=== PATIENT | male | born 1955 | race Caucasian/White ===

== ENCOUNTER 2017-03-24 11:27 | Inpatient (IN) | payer OTHER ==
--- NOTE | 2017-03-24 13:05 | RAD ---
HISTORY: Upper abdominal pain and nausea Study: Two-view chest Comparison: June 26, 2013 Findings: Trachea is midline. Heart size is upper normal with aortic uncoiling. There is hyperinflation of the lungs with stable increased interstitial markings. No infiltrate, CHF, pleural fluid or pneumothorax is seen. Mild multilevel thoracic spondylosis is appreciated. IMPRESSION: No acute cardiopulmonary disease. Reported By:
[2017-03-24] MEDS ORDERED: ZOFRAN INJ 4 MG VIAL IVP PRN (13:24)
[2017-03-24] MEDS ORDERED: PHENERGAN INJ 25 MG IVP PRN (13:31)
[2017-03-24 13:47] VITALS: BMI 31.5
[2017-03-24 13:48] LABS: BASOPHILS % (AUTO) 0.4 % (0.2-1.0); EOSINOPHILS # (AUTO) 0.2 x10^3/uL (0.0-0.2); EOSINOPHILS % (AUTO) 3.6 % (0.9-2.9); HEMATOCRIT 41.4 % (42.0-54.0); HEMOGLOBIN 14.6 g/dL (13.5-18.0); LYMPHOCYTES # (AUTO) 1.6 X10^3/uL (1.3-2.9); LYMPHOCYTES % (AUTO) 25.2 % (21.0-51.0); MEAN CORPUSCULAR HEMOGLOBIN 35.7 pg (27.0-34.0); MEAN CORPUSCULAR HGB CONC 35.3 g/dL (33.0-35.0); MEAN PLATELET VOLUME 7.6 fL (7.4-11.0); MONOCYTES # (AUTO) 0.7 x10^3/uL (0.3-0.8); MONOCYTES % (AUTO) 10.6 % (0.0-13.0); NEUTROPHILS # (AUTO) 3.8 x10^3/uL (2.2-4.8); NEUTROPHILS % (AUTO) 60.2 % (42.0-75.0); PLATELET COUNT 278 X10^3/uL (150.0-450.0); RED CELL DISTRIBUTION WIDTH 13.2 % (11.6-16.5); WHITE BLOOD COUNT 6.3 X10^3/uL (3.6-10.0)
[2017-03-24 13:59] LABS: ALANINE AMINOTRANSFERASE 18 Units/L (12-78); ALBUMIN 2.7 g/dL (3.4-5.0); ALKALINE PHOSPHATASE 45 Units/L (46-116); AMYLASE 52 Units/L (25-115); ASPARTATE AMINO TRANSFERASE 11 Units/L (15-37); BLOOD UREA NITROGEN 8 mg/dL (7-18); CALCIUM 9.3 mg/dL (8.5-10.1); CARBON DIOXIDE 29.1 mmol/L (21-32); CHLORIDE 104 mmol/L (98-107); COR CA(FOR HYPOALB) 10.3 mg/dL (8.5-10.1); COR NA(FOR HYPERGLY) 139 mmol/L (136-145); CREATININE 1.15 mg/dL (0.70-1.30); LIPASE 1337 Units/L (73-393); SODIUM 137 mmol/L (136-145); TOTAL PROTEIN 6.7 g/dL (6.4-8.2); eGFR BLACK RACES > 60 (>60); eGFR NON BLACK RACES > 60 (>60)
[2017-03-24] MEDS: PROTONIX INJ 40 MG VIAL IVP SCH ×2 (14:19→21:07)
[2017-03-24] MEDS: DILAUDID INJ IVP PRN ×2 (14:19→20:04)
[2017-03-24 20:15] LABS: BILIRUBIN,URINE NEGATIVE (NEGATIVE); BLOOD/HEMOGLOBIN,URINE 1+ (NEGATIVE); GLUCOSE, URINE NEGATIVE (NEGATIVE); KETONES,URINE NEGATIVE (NEGATIVE); LEUKOCYTE ESTERASE ,URINE NEGATIVE (NEGATIVE); NITRITES,URINE NEGATIVE (NEGATIVE); PROTEIN,URINE 2+ (NEGATIVE); UROBILINOGEN,URINE NORMAL (NORMAL)
[2017-03-24 20:21] LABS: APPEARANCE,URINE HAZY (CLEAR); BACTERIA,URINE TRACE /HPF (NEGATIVE); COLOR,URINE YELLOW (YELLOW); MUCUS,URINE MODERATE /HPF (NEGATIVE); RBC,URINE 0-2 /HPF (NEGATIVE); SQUAMOUS EPITHELIAL CELL,UR NEGATIVE /HPF (NEGATIVE)
[2017-03-25] MEDS: DILAUDID INJ IVP PRN ×5 (00:47→17:07)
[2017-03-25 06:32] LABS: ALANINE AMINOTRANSFERASE 19 Units/L (12-78); ALBUMIN 2.9 g/dL (3.4-5.0); ALKALINE PHOSPHATASE 44 Units/L (46-116); ASPARTATE AMINO TRANSFERASE 16 Units/L (15-37); BLOOD UREA NITROGEN 9 mg/dL (7-18); CALCIUM 9.3 mg/dL (8.5-10.1); CARBON DIOXIDE 29.9 mmol/L (21-32); CHLORIDE 104 mmol/L (98-107); COR CA(FOR HYPOALB) 10.2 mg/dL (8.5-10.1); COR NA(FOR HYPERGLY) 140 mmol/L (136-145); SODIUM 140 mmol/L (136-145); eGFR BLACK RACES > 60 (>60); eGFR NON BLACK RACES > 60 (>60)
[2017-03-25 06:33] LABS: BASOPHILS # (AUTO) 0.1 X10^3/uL (0.0-0.1); BASOPHILS % (AUTO) 1.5 % (0.2-1.0); EOSINOPHILS # (AUTO) 0.2 x10^3/uL (0.0-0.2); EOSINOPHILS % (AUTO) 3.4 % (0.9-2.9); HEMATOCRIT 41.1 % (42.0-54.0); HEMOGLOBIN 14.5 g/dL (13.5-18.0); LYMPHOCYTES # (AUTO) 1.8 X10^3/uL (1.3-2.9); LYMPHOCYTES % (AUTO) 24.3 % (21.0-51.0); MEAN CORPUSCULAR HEMOGLOBIN 35.6 pg (27.0-34.0); MEAN CORPUSCULAR HGB CONC 35.2 g/dL (33.0-35.0); MEAN PLATELET VOLUME 7.8 fL (7.4-11.0); MONOCYTES % (AUTO) 14.2 % (0.0-13.0); NEUTROPHILS # (AUTO) 4.1 x10^3/uL (2.2-4.8); NEUTROPHILS % (AUTO) 56.6 % (42.0-75.0); PLATELET COUNT 288 X10^3/uL (150.0-450.0); RED BLOOD COUNT 4.07 X10^6/uL (4.7-6.0); RED CELL DISTRIBUTION WIDTH 13.4 % (11.6-16.5); WHITE BLOOD COUNT 7.2 X10^3/uL (3.6-10.0)
[2017-03-25] MEDS: PROTONIX INJ 40 MG VIAL IVP SCH (08:45)
[2017-03-25] MEDS ORDERED: PATIENT'S HOME MEDICATION (Escitalopram Oxalate [Escitalopram Oxalate] 20 MG) PO SCH (11:15)
[2017-03-25] MEDS ORDERED: BENAZEPRIL HCL PO SCH (11:15)
[2017-03-25] MEDS ORDERED: PATIENT'S HOME MEDICATION (Omeprazole [Omeprazole] 40 MG) PO SCH (11:15)
[2017-03-25] MEDS ORDERED: PATIENT'S HOME MEDICATION (Ondansetron [Zofran Odt] 4 MG) PO PRN (11:15)
--- NOTE | 2017-03-25 11:29 | MRI ---
HISTORY: Abdominal pain Study: MRCP Comparison: CT abdomen pelvis March 24, 2017 Technique: MRCP Findings: The biliary ducts are well visualized and appear normal in caliber. No intraluminal filling defects a re identified. No evidence for biliary obstruction is identified. The pancreatic duct is similarly no rmal. IMPRESSION: Normal MRCP Reported By:
[2017-03-25 11:31] LABS: AMYLASE 75 Units/L (25-115)
[2017-03-25 11:38] LABS: LIPASE 1841 Units/L (73-393)
[2017-03-25] MEDS ORDERED: ZOFRAN TAB 4 MG PO PRN (13:02)
[2017-03-25] MEDS ORDERED: LEXAPRO ONE (13:06)
[2017-03-25] MEDS: FLOMAX PO SCH (13:16)
[2017-03-25] MEDS: BENTYL CAP 10 MG PO SCH ×2 (13:16→21:45)
[2017-03-25] MEDS: NORVASC TAB 10 MG PO SCH (13:16)
[2017-03-25] MEDS: SYNTHROID 100 mcg TAB PO SCH (13:16)
[2017-03-25] MEDS: LEXAPRO PO SCH (13:17)
[2017-03-25] MEDS: PriLOSEC PO SCH (13:17)
[2017-03-25] MEDS: LOTENSIN TAB 10 MG PO SCH (13:17)
[2017-03-25] MEDS: SINEMET (PLAIN) 25/100 MG PO SCH ×2 (13:17→21:45)
[2017-03-25] MEDS ORDERED: NS 1000 ML 1,000 ML ONE (13:19)
[2017-03-25] MEDS ORDERED: PATIENT'S HOME MEDICATION (Dicyclomine Hcl [Dicyclomine Hcl] 20 MG) PO SCH (14:00)
[2017-03-25] MEDS ORDERED: LEVODOPA PO SCH (14:00)
[2017-03-25] MEDS ORDERED: CARBIDOPA PO SCH (14:00)
[2017-03-25] MEDS ORDERED: NS 1000 ML 1,000 ML IV SCH (15:00)
[2017-03-25] MEDS: NORCO 7.5/325 MG TAB PO PRN (21:46)
[2017-03-26] MEDS: NS 1000 ML 1,000 ML IV SCH ×3 (04:04→17:25)
[2017-03-26] MEDS: DILAUDID INJ IVP PRN ×4 (05:16→21:44)
[2017-03-26] MEDS: BENTYL CAP 10 MG PO SCH ×3 (05:16→21:44)
[2017-03-26] MEDS: SINEMET (PLAIN) 25/100 MG PO SCH ×3 (05:17→21:45)
[2017-03-26 05:28] LABS: BASOPHILS % (AUTO) 0.7 % (0.2-1.0); EOSINOPHILS # (AUTO) 0.2 x10^3/uL (0.0-0.2); HEMATOCRIT 38.4 % (42.0-54.0); HEMOGLOBIN 13.5 g/dL (13.5-18.0); LYMPHOCYTES # (AUTO) 1.8 X10^3/uL (1.3-2.9); LYMPHOCYTES % (AUTO) 29.3 % (21.0-51.0); MEAN CORPUSCULAR HEMOGLOBIN 35.8 pg (27.0-34.0); MEAN CORPUSCULAR HGB CONC 35.2 g/dL (33.0-35.0); MEAN CORPUSCULAR VOLUME 101.6 fL (80.0-100.0); MEAN PLATELET VOLUME 7.8 fL (7.4-11.0); MONOCYTES # (AUTO) 0.9 x10^3/uL (0.3-0.8); MONOCYTES % (AUTO) 14.7 % (0.0-13.0); NEUTROPHILS # (AUTO) 3.1 x10^3/uL (2.2-4.8); NEUTROPHILS % (AUTO) 51.3 % (42.0-75.0); PLATELET COUNT 271 X10^3/uL (150.0-450.0); RED BLOOD COUNT 3.78 X10^6/uL (4.7-6.0); RED CELL DISTRIBUTION WIDTH 13.1 % (11.6-16.5)
[2017-03-26 06:39] LABS: BLOOD UREA NITROGEN 10 mg/dL (7-18); CALCIUM 8.8 mg/dL (8.5-10.1); CARBON DIOXIDE 29.1 mmol/L (21-32); CHLORIDE 103 mmol/L (98-107); COR NA(FOR HYPERGLY) 139 mmol/L (136-145); CREATININE 1.01 mg/dL (0.70-1.30); SODIUM 139 mmol/L (136-145); eGFR BLACK RACES > 60 (>60); eGFR NON BLACK RACES > 60 (>60)
[2017-03-26] MEDS ORDERED: LEXAPRO ONE (08:59)
[2017-03-26] MEDS: FLOMAX PO SCH (09:04)
[2017-03-26] MEDS: NORVASC TAB 10 MG PO SCH (09:07)
[2017-03-26] MEDS: LEXAPRO PO SCH (09:07)
[2017-03-26] MEDS: LOTENSIN TAB 10 MG PO SCH (09:07)
[2017-03-26] MEDS: SYNTHROID 100 mcg TAB PO SCH (09:07)
[2017-03-26] MEDS: PriLOSEC PO SCH (09:07)
[2017-03-26 13:56] LABS: ALANINE AMINOTRANSFERASE 8 Units/L (12-78); ALBUMIN 2.7 g/dL (3.4-5.0); ALKALINE PHOSPHATASE 41 Units/L (46-116); ASPARTATE AMINO TRANSFERASE 12 Units/L (15-37); COR CA(FOR HYPOALB) 9.8 mg/dL (8.5-10.1); TOTAL PROTEIN 6.5 g/dL (6.4-8.2)
[2017-03-26 14:26] LABS: AMYLASE 35 Units/L (25-115); LIPASE 477 Units/L (73-393)
[2017-03-27 04:31] LABS: ALANINE AMINOTRANSFERASE 9 Units/L (12-78); ALBUMIN 2.6 g/dL (3.4-5.0); ALKALINE PHOSPHATASE 41 Units/L (46-116); AMYLASE 28 Units/L (25-115); ASPARTATE AMINO TRANSFERASE 15 Units/L (15-37); BLOOD UREA NITROGEN 8 mg/dL (7-18); CALCIUM 8.3 mg/dL (8.5-10.1); CARBON DIOXIDE 27.6 mmol/L (21-32); CHLORIDE 107 mmol/L (98-107); COR CA(FOR HYPOALB) 9.4 mg/dL (8.5-10.1); CREATININE 0.92 mg/dL (0.70-1.30); LIPASE 371 Units/L (73-393); SODIUM 140 mmol/L (136-145); TOTAL PROTEIN 6.5 g/dL (6.4-8.2); eGFR BLACK RACES > 60 (>60); eGFR NON BLACK RACES > 60 (>60)
[2017-03-27 04:42] LABS: BASOPHILS % (AUTO) 0.9 % (0.2-1.0); EOSINOPHILS # (AUTO) 0.3 x10^3/uL (0.0-0.2); EOSINOPHILS % (AUTO) 4.8 % (0.9-2.9); HEMATOCRIT 38.5 % (42.0-54.0); HEMOGLOBIN 13.4 g/dL (13.5-18.0); LYMPHOCYTES # (AUTO) 1.8 X10^3/uL (1.3-2.9); LYMPHOCYTES % (AUTO) 33.9 % (21.0-51.0); MEAN CORPUSCULAR HEMOGLOBIN 35.5 pg (27.0-34.0); MEAN CORPUSCULAR HGB CONC 34.8 g/dL (33.0-35.0); MEAN CORPUSCULAR VOLUME 102.1 fL (80.0-100.0); MEAN PLATELET VOLUME 7.8 fL (7.4-11.0); MONOCYTES # (AUTO) 0.8 x10^3/uL (0.3-0.8); MONOCYTES % (AUTO) 14.7 % (0.0-13.0); NEUTROPHILS # (AUTO) 2.5 x10^3/uL (2.2-4.8); NEUTROPHILS % (AUTO) 45.7 % (42.0-75.0); PLATELET COUNT 270 X10^3/uL (150.0-450.0); RED BLOOD COUNT 3.77 X10^6/uL (4.7-6.0); RED CELL DISTRIBUTION WIDTH 13.1 % (11.6-16.5); WHITE BLOOD COUNT 5.5 X10^3/uL (3.6-10.0)
[2017-03-27] MEDS: NS 1000 ML 1,000 ML IV SCH ×3 (05:25→22:18)
[2017-03-27] MEDS: SINEMET (PLAIN) 25/100 MG PO SCH ×3 (05:26→21:18)
[2017-03-27] MEDS: BENTYL CAP 10 MG PO SCH ×3 (05:26→21:18)
[2017-03-27] MEDS ORDERED: LEXAPRO ONE (08:38)
[2017-03-27] MEDS: LOTENSIN TAB 10 MG PO SCH (08:41)
[2017-03-27] MEDS: FLOMAX PO SCH (08:42)
[2017-03-27] MEDS: PriLOSEC PO SCH (08:42)
[2017-03-27] MEDS: SYNTHROID 100 mcg TAB PO SCH (08:42)
[2017-03-27] MEDS: LEXAPRO PO SCH (08:42)
[2017-03-27] MEDS: NORVASC TAB 10 MG PO SCH (08:42)
[2017-03-27] MEDS: NORCO 7.5/325 MG TAB PO PRN ×2 (08:55→18:17)
--- NOTE | 2017-03-27 12:17 | PCM.PROG ---
Progress Note - Progress Note for Day of Date: 03/27/17 - Subjective Subjective: patient is a 61-year-old white male who was admitted on 929 with acute pancreatitis. Patient's lipase is down to 371 this a.m. Patient is tolerating a full liquid diet. Patient reports normal bowel movements and no nausea or vomiting this morning and slight upper abdominal discomfort. We discussed advancing diet as tolerated and repeat a.m. labs. - Past Medical Family Social History Past Med/Fam/Surg Hx: No changes since H&P Allergies: Allergies meperidine [From Demerol] Adverse Reaction (Verified 03/24/17 13:05) - Review of Systems ROS: No change since H&P - Vital Signs and I&O's Vital Signs: Temperature 98 F Pulse Rate [Right Brachial] 64 Pulse Rate [Left Brachial] 68 Respiratory Rate 18 Blood Pressure [Right Arm] 115/69 Blood Pressure [Left Arm] 132/87 Blood Pressure 152/91 O2 Sat by Pulse Oximetry 97 Intake and Output: Intake & Output 03/25/17 03/26/17 03/27/17 03/28/17 11:59 11:59 11:59 11:59 Intake Total 60 1300 960 Output Total 0 Balance 60 1300 960 - Physical Exam Oriented: Normal Eyes: Normal Ear: Normal Nose: Normal Throat: Normal Respiratory: Normal Cardiovascular: Normal : Normal Tenderness: LUQ, Epigastric Skin: Normal Musculoskeletal: Back:Lumbar Psychiatric: Normal Speech Pattern: Clear, Appropriate - Laboratory and Diagnostics Result Diagrams: 03/27/17 03:25 03/27/17 03:25 Labs: 03/24/17 19:55 Urine,Clean Catch Urine Culture - Final Laboratory WBC 5.5 X10^3/uL (3.6-10.0) 03/27/17 03:25 RBC 3.77 X10^6/uL (4.7-6.0) L 03/27/17 03:25 Hgb 13.4 g/dL (13.5-18.0) L 03/27/17 03:25 Hct 38.5 % (42.0-54.0) L 03/27/17 03:25 MCV 102.1 fL (80.0-100.0) H 03/27/17 03:25 MCH 35.5 pg (27.0-34.0) H 03/27/17 03:25 MCHC 34.8 g/dL (33.0-35.0) 03/27/17 03:25 RDW 13.1 % (11.6-16.5) 03/27/17 03:25 Plt Count 270 X10^3/uL (150.0-450.0) 03/27/17 03:25 MPV 7.8 fL (7.4-11.0) 03/27/17 03:25 Neut % 45.7 % (42.0-75.0) 03/27/17 03:25 Lymph % 33.9 % (21.0-51.0) 03/27/17 03:25 [place] % 14.7 % (0.0-13.0) H 03/27/17 03:25 Eos % 4.8 % (0.9-2.9) H 03/27/17 03:25 Baso % 0.9 % (0.2-1.0) 03/27/17 03:25 Neut # 2.5 x10^3/uL (2.2-4.8) 03/27/17 03:25 Lymph # 1.8 X10^3/uL (1.3-2.9) 03/27/17 03:25 [place] # 0.8 x10^3/uL (0.3-0.8) 03/27/17 03:25 Eos # 0.3 x10^3/uL (0.0-0.2) H 03/27/17 03:25 Baso # 0.0 X10^3/uL (0.0-0.1) 03/27/17 03:25 Absolute Nucleated RBC 0.1 /100WBC 03/27/17 03:25 Sodium 140 mmol/L (136-145) 03/27/17 03:25 Corrected Sodium TNP 03/27/17 03:25 Potassium 3.9 mmol/L (3.5-5.1) 03/27/17 03:25 Chloride 107 mmol/L (98-107) 03/27/17 03:25 Carbon Dioxide 27.6 mmol/L (21-32) 03/27/17 03:25 BUN 8 mg/dL (7-18) 03/27/17 03:25 Creatinine 0.92 mg/dL (0.70-1.30) 03/27/17 03:25 Est GFR (MDRD) Af Amer > 60 (>60) 03/27/17 03:25 Est GFR (MDRD) Non-Af > 60 (>60) 03/27/17 03:25 Glucose 94 mg/dL (65-99) 03/27/17 03:25 Calcium 8.3 mg/dL (8.5-10.1) L 03/27/17 03:25 Corrected Calcium 9.4 mg/dL (8.5-10.1) 03/27/17 03:25 Total Bilirubin 0.20 mg/dL (0.2-1.0) 03/27/17 03:25 AST 15 Units/L (15-37) 03/27/17 03:25 ALT 9 Units/L (12-78) L 03/27/17 03:25 Alkaline Phosphatase 41 Units/L (46-116) L 03/27/17 03:25 Total Protein 6.5 g/dL (6.4-8.2) 03/27/17 03:25 Albumin 2.6 g/dL (3.4-5.0) L 03/27/17 03:25 Globulin 3.9 g/dL (2.5-4.5) 03/27/17 03:25 Albumin/Globulin Ratio 0.7 Ratio (1.1-2.1) L 03/27/17 03:25 Amylase 28 Units/L (25-115) 03/27/17 03:25 Lipase 371 Units/L (73-393) 03/27/17 03:25 Specimen Type Clean catch urine 03/24/17 19:55 Urine Color Yellow (YELLOW) 03/24/17 19:55 Urine Appearance Hazy (CLEAR) 03/24/17 19:55 Urine pH 5.0 (5.0 - 8.0) 03/24/17 19:55 Ur Specific [place] 1.015 (1.000-1.030) 03/24/17 19:55 Urine Protein 2+ (NEGATIVE) 03/24/17 19:55 Urine Glucose (UA) Negative (NEGATIVE) 03/24/17 19:55 Urine Ketones Negative (NEGATIVE) 03/24/17 19:55 Urine Occult Blood 1+ (NEGATIVE) 03/24/17 19:55 Urine Nitrite Negative (NEGATIVE) 03/24/17 19:55 Urine Bilirubin Negative (NEGATIVE) 03/24/17 19:55 Urine Urobilinogen Normal (NORMAL) 03/24/17 19:55 Ur Leukocyte Esterase Negative (NEGATIVE) 03/24/17 19:55 Urine RBC 0-2 /HPF (NEGATIVE) 03/24/17 19:55 Urine WBC 0-2 /HPF (NEGATIVE) 03/24/17 19:55 Ur Squamous Epith Cells Negative /HPF (NEGATIVE) 03/24/17 19:55 Urine Bacteria Trace /HPF (NEGATIVE) 03/24/17 19:55 Urine Mucus Moderate /HPF (NEGATIVE) 03/24/17 19:55 Ur Culture Indicated? Yes/culture set up 03/24/17 19:55 - Plan (1) Pancreatitis Status: Acute Plan: continue iv hydration. pain control, nausea control. repeat am labs, advance diet as tolerated, discussed possible d/c home tomorrow if pt continues to improve (2) GERD (gastroesophageal reflux disease) Status: Acute (3) Hypertension Status: Acute (4) Arthritis Status: Acute
[2017-03-27] MEDS ORDERED: DILAUDID INJ IVP PRN (18:13)
[2017-03-27] MEDS: MILK OF MAGNESIA PO SCH (21:17)
[2017-03-27] MEDS: COLACE CAP 100 MG PO SCH (21:17)
[2017-03-27] MEDS: PROTONIX INJ 40 MG VIAL IVP SCH (21:18)
[2017-03-28] MEDS ORDERED: NS 1/2 1000 ML IV 0 ML IV ONE (01:41)
[2017-03-28 05:09] LABS: BASOPHILS # (AUTO) 0.1 X10^3/uL (0.0-0.1); BASOPHILS % (AUTO) 1.2 % (0.2-1.0); EOSINOPHILS # (AUTO) 0.3 x10^3/uL (0.0-0.2); EOSINOPHILS % (AUTO) 4.9 % (0.9-2.9); HEMATOCRIT 37.8 % (42.0-54.0); HEMOGLOBIN 13.2 g/dL (13.5-18.0); LYMPHOCYTES # (AUTO) 1.8 X10^3/uL (1.3-2.9); LYMPHOCYTES % (AUTO) 35.1 % (21.0-51.0); MEAN CORPUSCULAR HEMOGLOBIN 35.1 pg (27.0-34.0); MEAN CORPUSCULAR VOLUME 100.4 fL (80.0-100.0); MONOCYTES # (AUTO) 0.7 x10^3/uL (0.3-0.8); MONOCYTES % (AUTO) 13.7 % (0.0-13.0); NEUTROPHILS # (AUTO) 2.3 x10^3/uL (2.2-4.8); NEUTROPHILS % (AUTO) 45.1 % (42.0-75.0); PLATELET COUNT 276 X10^3/uL (150.0-450.0); RED BLOOD COUNT 3.77 X10^6/uL (4.7-6.0); WHITE BLOOD COUNT 5.2 X10^3/uL (3.6-10.0)
[2017-03-28 05:25] LABS: ALANINE AMINOTRANSFERASE 10 Units/L (12-78); ALBUMIN 2.5 g/dL (3.4-5.0); ALKALINE PHOSPHATASE 44 Units/L (46-116); AMYLASE 27 Units/L (25-115); ASPARTATE AMINO TRANSFERASE 15 Units/L (15-37); BLOOD UREA NITROGEN 6 mg/dL (7-18); CALCIUM 8.2 mg/dL (8.5-10.1); CARBON DIOXIDE 24.8 mmol/L (21-32); CHLORIDE 110 mmol/L (98-107); COR CA(FOR HYPOALB) 9.4 mg/dL (8.5-10.1); CREATININE 0.94 mg/dL (0.70-1.30); LIPASE 463 Units/L (73-393); SODIUM 144 mmol/L (136-145); TOTAL PROTEIN 6.3 g/dL (6.4-8.2); eGFR BLACK RACES > 60 (>60); eGFR NON BLACK RACES > 60 (>60)
[2017-03-28] MEDS: SINEMET (PLAIN) 25/100 MG PO SCH (05:34)
[2017-03-28] MEDS: BENTYL CAP 10 MG PO SCH (05:35)
[2017-03-28 08:12] VITALS: BP 127/77
[2017-03-28] MEDS ORDERED: LEXAPRO ONE (08:57)
[2017-03-28] MEDS: LOTENSIN TAB 10 MG PO SCH (09:05)
[2017-03-28] MEDS: FLOMAX PO SCH (09:05)
[2017-03-28] MEDS: LEXAPRO PO SCH (09:05)
[2017-03-28] MEDS: COLACE CAP 100 MG PO SCH (09:05)
[2017-03-28] MEDS: PROTONIX INJ 40 MG VIAL IVP SCH (09:06)
[2017-03-28] MEDS: NORVASC TAB 10 MG PO SCH (09:06)
[2017-03-28] MEDS: SYNTHROID 100 mcg TAB PO SCH (09:06)
[2017-03-28] MEDS: MILK OF MAGNESIA PO SCH (09:06)
[2017-03-28] MEDS: NORCO 7.5/325 MG TAB PO PRN (09:07)
== END 2017-03-28 11:39 | disposition home or self-care (01) | DRG 440 ==
LOC: MED/SURG 11:27
PROVIDERS: ADMIT Internal Medicine; ATTEND Internal Medicine
DX: K85.80 Other acute pancreatitis without necrosis or infection (principal); R10.84 Generalized abdominal pain; R11.2 Nausea with vomiting, unspecified; I10 Essential (primary) hypertension; E03.8 Other specified hypothyroidism; G20 Parkinson's disease; K21.9 Gastro-esophageal reflux disease without esophagitis; M13.89 Other specified arthritis, multiple sites
CPT/HCPCS: 36415; 71020; 74181; 80053; 81001; 82150; 83690; 85025; 87086; 99221; 99231; A4222; C9113; J2405

== ENCOUNTER → 2017-03-24 | Outpatient (CLI) | payer OTHER ==
[2013-06-29 10:46] VITALS: BP 152/91
[~2017-03-24] MED LIST: NS 100 ML IV 100 ML IV ONE
--- NOTE | 2017-03-24 12:37 | CT ---
HISTORY: Generalized abdominal pain and distention Study: CT abdomen and pelvis with contrast Comparison: None Technique: Multiple axial images of the abdomen and pelvis were obtained with IV contrast. Oral contrast was ad ministered. Dose reduction techniques including Automated Exposure Control (AEC) and adjustment of mA and kV were utilized. Findings: The visualized portions of the lung bases are unremarkable. The liver, spleen, pancreas, kidneys, an d adrenal glands are unremarkable in their CT appearance. The gallbladder is removed. No renal calcul i or obstructive uropathy identified. No free intraperitoneal air. No evidence of intestinal obstruction or inflammation. The appendix is n ormal. No free fluid identified. Oral contrast reaches the hepatic flexure. Multilevel disc disease of the lumbar spine is noted. There is moderate calcified plaque in the aorta and branch vessels. No pathologically enlarged lymph nodes are identified. Normal urinary bladder. T he prostate gland is mildly enlarged. IMPRESSION: 1. No acute abnormality identified. 2. Mildly enlarged prostate gland. 3. Prior cholecystectomy. Reported By:
== END | disposition home or self-care (01) | DRG 392 ==
LOC: RAD 10:22
PROVIDERS: ATTEND Nurse Practitioner Family
DX: R10.84 Generalized abdominal pain (principal); R14.0 Abdominal distension (gaseous); R11.0 Nausea; K21.9 Gastro-esophageal reflux disease without esophagitis; N40.0 Benign prostatic hyperplasia without lower urinary tract symptoms
CPT/HCPCS: 74177; A4222

== ENCOUNTER 2017-05-10 15:14 | Observation (INO) | payer OTHER ==
[2017-05-10] MEDS ORDERED: ZOFRAN INJ 4 MG VIAL IVP PRN (15:42)
[2017-05-10] MEDS: MORPHINE SULFATE INJ 4 MG IVP PRN ×2 (16:25→20:46)
[2017-05-10] MEDS: NS 1000 ML 1,000 ML IV SCH (16:26)
[2017-05-10] MEDS: PROTONIX INJ 40 MG VIAL IVP SCH (16:28)
[2017-05-10 16:40] LABS: BASOPHILS # (AUTO) 0.1 X10^3/uL (0.0-0.1); BASOPHILS % (AUTO) 0.6 % (0.2-1.0); EOSINOPHILS # (AUTO) 0.1 x10^3/uL (0.0-0.2); EOSINOPHILS % (AUTO) 1.3 % (0.9-2.9); HEMATOCRIT 49.5 % (42.0-54.0); HEMOGLOBIN 17.2 g/dL (13.5-18.0); LYMPHOCYTES # (AUTO) 1.6 X10^3/uL (1.3-2.9); LYMPHOCYTES % (AUTO) 18.8 % (21.0-51.0); MEAN CORPUSCULAR HEMOGLOBIN 34.4 pg (27.0-34.0); MEAN CORPUSCULAR HGB CONC 34.8 g/dL (33.0-35.0); MEAN CORPUSCULAR VOLUME 98.9 fL (80.0-100.0); MEAN PLATELET VOLUME 7.6 fL (7.4-11.0); MONOCYTES # (AUTO) 1.1 x10^3/uL (0.3-0.8); MONOCYTES % (AUTO) 12.9 % (0.0-13.0); NEUTROPHILS # (AUTO) 5.8 x10^3/uL (2.2-4.8); NEUTROPHILS % (AUTO) 66.4 % (42.0-75.0); PLATELET COUNT 279 X10^3/uL (150.0-450.0); RED BLOOD COUNT 5.01 X10^6/uL (4.7-6.0); RED CELL DISTRIBUTION WIDTH 14.1 % (11.6-16.5); WHITE BLOOD COUNT 8.7 X10^3/uL (3.6-10.0)
[2017-05-10 16:46] LABS: ALANINE AMINOTRANSFERASE 21 Units/L (12-78); ALBUMIN 3.5 g/dL (3.4-5.0); ALKALINE PHOSPHATASE 64 Units/L (46-116); AMYLASE 62 Units/L (25-115); ASPARTATE AMINO TRANSFERASE 13 Units/L (15-37); BLOOD UREA NITROGEN 11 mg/dL (7-18); CALCIUM 9.6 mg/dL (8.5-10.1); CHLORIDE 102 mmol/L (98-107); COR NA(FOR HYPERGLY) 140 mmol/L (136-145); CREATININE 1.11 mg/dL (0.70-1.30); LIPASE 1308 Units/L (73-393); SODIUM 139 mmol/L (136-145); TOTAL PROTEIN 7.6 g/dL (6.4-8.2); eGFR BLACK RACES > 60 (>60); eGFR NON BLACK RACES > 60 (>60)
[2017-05-10 17:21] VITALS: BMI 31.5
[2017-05-10 20:58] LABS: BILIRUBIN,URINE NEGATIVE (NEGATIVE); BLOOD/HEMOGLOBIN,URINE 2+ (NEGATIVE); GLUCOSE, URINE NEGATIVE (NEGATIVE); KETONES,URINE 1+ (NEGATIVE); LEUKOCYTE ESTERASE ,URINE NEGATIVE (NEGATIVE); NITRITES,URINE NEGATIVE (NEGATIVE); PROTEIN,URINE 2+ (NEGATIVE); UROBILINOGEN,URINE NORMAL (NORMAL)
[2017-05-10 21:06] LABS: APPEARANCE,URINE CLEAR (CLEAR); BACTERIA,URINE TRACE /HPF (NEGATIVE); COLOR,URINE YELLOW (YELLOW); SQUAMOUS EPITHELIAL CELL,UR FEW /HPF (NEGATIVE)
[2017-05-11] MEDS: MORPHINE SULFATE INJ 4 MG IVP PRN ×5 (03:48→19:28)
[2017-05-11 04:46] LABS: ALANINE AMINOTRANSFERASE 19 Units/L (12-78); ALKALINE PHOSPHATASE 58 Units/L (46-116); AMYLASE 57 Units/L (25-115); ASPARTATE AMINO TRANSFERASE 13 Units/L (15-37); BLOOD UREA NITROGEN 12 mg/dL (7-18); CALCIUM 9.3 mg/dL (8.5-10.1); CARBON DIOXIDE 25.2 mmol/L (21-32); CHLORIDE 103 mmol/L (98-107); COR CA(FOR HYPOALB) 10.1 mg/dL (8.5-10.1); COR NA(FOR HYPERGLY) 138 mmol/L (136-145); CREATININE 1.02 mg/dL (0.70-1.30); LIPASE 1300 Units/L (73-393); SODIUM 138 mmol/L (136-145); eGFR BLACK RACES > 60 (>60); eGFR NON BLACK RACES > 60 (>60)
[2017-05-11 05:07] LABS: BASOPHILS % (AUTO) 0.5 % (0.2-1.0); EOSINOPHILS # (AUTO) 0.2 x10^3/uL (0.0-0.2); EOSINOPHILS % (AUTO) 2.2 % (0.9-2.9); HEMATOCRIT 46.3 % (42.0-54.0); HEMOGLOBIN 16.1 g/dL (13.5-18.0); LYMPHOCYTES # (AUTO) 1.7 X10^3/uL (1.3-2.9); LYMPHOCYTES % (AUTO) 22.7 % (21.0-51.0); MEAN CORPUSCULAR HEMOGLOBIN 34.5 pg (27.0-34.0); MEAN CORPUSCULAR HGB CONC 34.8 g/dL (33.0-35.0); MEAN CORPUSCULAR VOLUME 99.3 fL (80.0-100.0); MEAN PLATELET VOLUME 7.8 fL (7.4-11.0); MONOCYTES # (AUTO) 1.1 x10^3/uL (0.3-0.8); MONOCYTES % (AUTO) 14.6 % (0.0-13.0); NEUTROPHILS # (AUTO) 4.4 x10^3/uL (2.2-4.8); PLATELET COUNT 249 X10^3/uL (150.0-450.0); RED BLOOD COUNT 4.66 X10^6/uL (4.7-6.0); RED CELL DISTRIBUTION WIDTH 14.5 % (11.6-16.5); WHITE BLOOD COUNT 7.3 X10^3/uL (3.6-10.0)
[2017-05-11] MEDS: NS 1000 ML 1,000 ML IV SCH ×3 (05:47→20:00)
[2017-05-11] MEDS: PROTONIX INJ 40 MG VIAL IVP SCH (08:29)
--- NOTE | 2017-05-11 12:45 | DR.H&P ---
H&P - History & Physical for Day of: H&P Date: 05/10/17 - Chief Complaint Chief Complaint: INTRACTABLE ABDOMINAL PAIN, N/V - Allergies Allergies/Adverse Reactions: Allergies Allergy/AdvReac Type Severity Reaction Status Date / Time meperidine [From Demerol] AdvReac Verified 03/24/17 13:05 - History of Present Illness History of Present Illness: patient is a 61-year-old white male who is a patient of [facility] practice. He was a direct admit per Dr. Dejesus for failure to improve with outpatient therapy for abdominal pain with nausea and vomiting. Patient has a history of pancreatitis with last episode approximately 1 month ago. Patient has had a cholecystectomy however he did have gallstones and had an MRCP February of this year which was negative. Patient also had a CT of the abdomen and pelvis last obtained in February. Patient has a history of hypertension and osteoarthritis. We plan to admit patient, admission labs, gentle IV hydration pain and nausea control and amylase and lipase on a daily basis. Patient will be nothing by mouth until resolution of pain and normal pancreatic enzymes. - Past Medical History Past Medical History: Hypertension, Hypothyroidism Additional Medical History: hx of pacreatitis - Past Surgical History Surgical History: Cholecystectomy, Tonsillectomy, Other - Family History Family Medical History: Diabetes Mellitus, Hypertension - Social History Does patient currently use any type of tobacco product: No Have you used tobacco products in the last 12 months: No Type of Tobacco Use: None Does any household member use tobacco: Yes (Doesn't smoke in the hous) Alcohol Use: None Drug Use: None - Medications Home Medications: Cyclobenzaprine HCl [FLEXERIL 10 MG *] 1 tab PO HS 05/10/17 [History Confirmed 05/10/17] - Review of Systems Constitutional: Weakness Eyes: No Symptoms Reported ENT: No Symptoms Reported Respiratory: No Symptoms Reported Gastrointestinal: Nausea, Vomiting, Abdominal Pain Genitourinary: No Symptoms Reported Musculoskeletal: No Symptoms Reported Skin: No Symptoms Reported Neurological: No Symptoms Reported - Physical Exam Vital Signs: Temperature 98.1 F Pulse Rate [Right Brachial] 72 Respiratory Rate 20 Blood Pressure [Right Arm] 132/91 Blood Pressure [Left Arm] 132/87 Blood Pressure 127/77 O2 Sat by Pulse Oximetry 94 Oriented: Normal Eyes: Normal Ear: Normal Throat: Normal Respiratory: Clear Throughout Cardiovascular: Normal : Normal Auscultation: Bowel Sounds: Normal Palpation: Normal Tenderness: LUQ, Epigastric Skin: Normal Musculoskeletal: Normal Psychiatric: Anxiety Speech Pattern: Clear, Appropriate - Assessment/Plan (1) Pancreatitis Status: Acute Plan: admit, daily amylase and lipase until normal, IV hydration, pain and nausea control, nothing by mouth. Resume home medications. Obtain previous CT scan and MRCP from February (2) Arthritis Status: Chronic (3) GERD (gastroesophageal reflux disease) Status: Chronic (4) Hypertension Status: Chronic
--- NOTE | 2017-05-11 13:56 | PCM.PROG ---
Progress Note - Progress Note for Day of Date: 05/11/17 - Subjective Subjective: patient is a 61-year-old white male who was admitted one day ago for intractable abdominal pain nausea and vomiting. Patient had elevatedpancreatic enzymes suggesting pancreatitis. Patient is currently nothing by mouth on IV pain and nausea medication as well as gentle hydration. We will plan to order a CT of the abdomen and pelvis with contrast today. Patient previously had an MRCP on prior hospitalization in February of this year. We discussed advancing diet with normal pancreatic enzyme levels. - Past Medical Family Social History Past Med/Fam/Surg Hx: No changes since H&P Allergies: Allergies meperidine [From Demerol] Adverse Reaction (Verified 03/24/17 13:05) - Review of Systems ROS: No change since H&P - Vital Signs and I&O's Vital Signs: Temperature 98.1 F Pulse Rate [Right Brachial] 72 Respiratory Rate 20 Blood Pressure [Right Arm] 132/91 Blood Pressure [Left Arm] 132/87 Blood Pressure 127/77 O2 Sat by Pulse Oximetry 94 Intake and Output: Intake & Output 05/09/17 05/10/17 05/11/17 05/12/17 11:59 11:59 11:59 11:59 Intake Total 930 Balance 930 - Physical Exam Oriented: Normal Eyes: Normal Ear: Normal Throat: Normal Cardiovascular: Normal : Normal Auscultation: Bowel Sounds: Normal Tenderness: LUQ, Epigastric Skin: Normal Musculoskeletal: Normal Psychiatric: Anxiety Speech Pattern: Clear, Appropriate - Laboratory and Diagnostics Result Diagrams: 05/11/17 03:30 05/11/17 03:30 Labs: Laboratory WBC 7.3 X10^3/uL (3.6-10.0) 05/11/17 03:30 RBC 4.66 X10^6/uL (4.7-6.0) L 05/11/17 03:30 Hgb 16.1 g/dL (13.5-18.0) 05/11/17 03:30 Hct 46.3 % (42.0-54.0) 05/11/17 03:30 MCV 99.3 fL (80.0-100.0) 05/11/17 03:30 MCH 34.5 pg (27.0-34.0) H 05/11/17 03:30 MCHC 34.8 g/dL (33.0-35.0) 05/11/17 03:30 RDW 14.5 % (11.6-16.5) 05/11/17 03:30 Plt Count 249 X10^3/uL (150.0-450.0) 05/11/17 03:30 MPV 7.8 fL (7.4-11.0) 05/11/17 03:30 Neut % 60.0 % (42.0-75.0) 05/11/17 03:30 Lymph % 22.7 % (21.0-51.0) 05/11/17 03:30 [place] % 14.6 % (0.0-13.0) H 05/11/17 03:30 Eos % 2.2 % (0.9-2.9) 05/11/17 03:30 Baso % 0.5 % (0.2-1.0) 05/11/17 03:30 Neut # 4.4 x10^3/uL (2.2-4.8) 05/11/17 03:30 Lymph # 1.7 X10^3/uL (1.3-2.9) 05/11/17 03:30 [place] # 1.1 x10^3/uL (0.3-0.8) H 05/11/17 03:30 Eos # 0.2 x10^3/uL (0.0-0.2) 05/11/17 03:30 Baso # 0.0 X10^3/uL (0.0-0.1) 05/11/17 03:30 Absolute Nucleated RBC 0.0 /100WBC 05/11/17 03:30 Sodium 138 mmol/L (136-145) 05/11/17 03:30 Corrected Sodium 138 mmol/L (136-145) 05/11/17 03:30 Potassium 3.6 mmol/L (3.5-5.1) 05/11/17 03:30 Chloride 103 mmol/L (98-107) 05/11/17 03:30 Carbon Dioxide 25.2 mmol/L (21-32) 05/11/17 03:30 BUN 12 mg/dL (7-18) 05/11/17 03:30 Creatinine 1.02 mg/dL (0.70-1.30) 05/11/17 03:30 Est GFR (MDRD) Af Amer > 60 (>60) 05/11/17 03:30 Est GFR (MDRD) Non-Af > 60 (>60) 05/11/17 03:30 Glucose 113 mg/dL (65-99) H 05/11/17 03:30 Calcium 9.3 mg/dL (8.5-10.1) 05/11/17 03:30 Corrected Calcium 10.1 mg/dL (8.5-10.1) 05/11/17 03:30 Total Bilirubin 0.60 mg/dL (0.2-1.0) 05/11/17 03:30 AST 13 Units/L (15-37) L 05/11/17 03:30 ALT 19 Units/L (12-78) 05/11/17 03:30 Alkaline Phosphatase 58 Units/L (46-116) 05/11/17 03:30 Total Protein 7.0 g/dL (6.4-8.2) 05/11/17 03:30 Albumin 3.0 g/dL (3.4-5.0) L 05/11/17 03:30 Globulin 4.0 g/dL (2.5-4.5) 05/11/17 03:30 Albumin/Globulin Ratio 0.8 Ratio (1.1-2.1) L 05/11/17 03:30 Amylase 57 Units/L (25-115) 05/11/17 03:30 Lipase 1300 Units/L (73-393) H 05/11/17 03:30 Specimen Type Clean catch urine 05/10/17 20:50 Urine Color Yellow (YELLOW) 05/10/17 20:50 Urine Appearance Clear (CLEAR) 05/10/17 20:50 Urine pH 5.0 (5.0 - 8.0) 05/10/17 20:50 Ur Specific Line [place] 1.020 (1.000-1.030) 05/10/17 20:50 Urine Protein 2+ (NEGATIVE) 05/10/17 20:50 Urine Glucose (UA) Negative (NEGATIVE) 05/10/17 20:50 Urine Ketones 1+ (NEGATIVE) 05/10/17 20:50 Urine Occult Blood 2+ (NEGATIVE) 05/10/17 20:50 Urine Nitrite Negative (NEGATIVE) 05/10/17 20:50 Urine Bilirubin Negative (NEGATIVE) 05/10/17 20:50 Urine Urobilinogen Normal (NORMAL) 05/10/17 20:50 Ur Leukocyte Esterase Negative (NEGATIVE) 05/10/17 20:50 Urine RBC 4-6 /HPF (NEGATIVE) 05/10/17 20:50 Urine WBC 2-4 /HPF (NEGATIVE) 05/10/17 20:50 Ur Squamous Epith Cells Few /HPF (NEGATIVE) 05/10/17 20:50 Urine Bacteria Trace /HPF (NEGATIVE) 05/10/17 20:50 Ur Culture Indicated? Yes/culture set up 05/10/17 20:50 - Plan (1) Pancreatitis Status: Acute Plan: REPEAT A.M. LABS, CONTINUE CURRENT MEDICATION REGIMEN AND iv HYDRATION. We will plan to order a CT of the abdomen and pelvis with contrast today. Patient previously had an MRCP on prior hospitalization in February of this year. We discussed advancing diet with normal pancreatic enzyme levels. (2) Arthritis Status: Chronic (3) GERD (gastroesophageal reflux disease) Status: Chronic (4) Hypertension Status: Chronic
--- NOTE | 2017-05-11 15:17 | CT ---
CT OF THE ABDOMEN AND PELVIS WITH CONTRAST HISTORY: Pancreatitis Comparison: MRCP 03/25/2017 Technique: Multiple axial images of the abdomen and pelvis were obtained from the lung bases to the pubic symphy sis follow the administration of IV contrast as well as oral contrast. Dose reduction techniques inc luding Automated Exposure Control (AEC) and adjustment of mA and kV were utlized. Findings: The heart is normal in size. Aortic root appears to measure approximately 4 cm.. Lung bases are clear without focal consolidation, pleural effusion or pneumothorax. Liver and spleen are normal in size, enhancement characteristics and contour. No focal lesions. The p ortal vein is patent. No ductal dilitation. Gallbladder absent. Questionable, trace peripancreatic in flammation. Adrenal glands are normal. Kidneys enhance symmetrically without hydronephrosis or nephro lithiasis. No bowel obstruction or inflammation. No abnormal appearing mesenteric or retroperitoneal lymph node s. No free fluid or fluid collections. The bladder is normal in appearance. Prostate not enlarged. No free fluid or abnormal pelvic lymph no sergio. No aggressive osseous lesions. IMPRESSION: 1. Questionable trace peripancreatic inflammation. Correlate with lipase levels as clinical pancreat itis may preceding imaging findings. 2. 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 CTA of the chest would be recomm ended if this is not a known entity. Reported By:
[2017-05-12 05:55] LABS: ALANINE AMINOTRANSFERASE 17 Units/L (12-78); ALBUMIN 2.9 g/dL (3.4-5.0); ALKALINE PHOSPHATASE 60 Units/L (46-116); AMYLASE 42 Units/L (25-115); ASPARTATE AMINO TRANSFERASE 12 Units/L (15-37); BLOOD UREA NITROGEN 12 mg/dL (7-18); CALCIUM 9.2 mg/dL (8.5-10.1); CARBON DIOXIDE 27.6 mmol/L (21-32); CHLORIDE 102 mmol/L (98-107); COR CA(FOR HYPOALB) 10.1 mg/dL (8.5-10.1); CREATININE 0.99 mg/dL (0.70-1.30); LIPASE 710 Units/L (73-393); SODIUM 139 mmol/L (136-145); TOTAL PROTEIN 6.8 g/dL (6.4-8.2); eGFR BLACK RACES > 60 (>60); eGFR NON BLACK RACES > 60 (>60)
[2017-05-12 06:59] LABS: BASOPHILS # (AUTO) 0.1 X10^3/uL (0.0-0.1); BASOPHILS % (AUTO) 1.1 % (0.2-1.0); EOSINOPHILS # (AUTO) 0.2 x10^3/uL (0.0-0.2); EOSINOPHILS % (AUTO) 2.5 % (0.9-2.9); HEMATOCRIT 45.4 % (42.0-54.0); HEMOGLOBIN 15.9 g/dL (13.5-18.0); LYMPHOCYTES # (AUTO) 1.7 X10^3/uL (1.3-2.9); LYMPHOCYTES % (AUTO) 23.4 % (21.0-51.0); MEAN CORPUSCULAR HEMOGLOBIN 34.6 pg (27.0-34.0); MEAN CORPUSCULAR HGB CONC 35.1 g/dL (33.0-35.0); MEAN CORPUSCULAR VOLUME 98.6 fL (80.0-100.0); MEAN PLATELET VOLUME 7.7 fL (7.4-11.0); MONOCYTES # (AUTO) 1.1 x10^3/uL (0.3-0.8); MONOCYTES % (AUTO) 15.4 % (0.0-13.0); NEUTROPHILS # (AUTO) 4.2 x10^3/uL (2.2-4.8); NEUTROPHILS % (AUTO) 57.6 % (42.0-75.0); PLATELET COUNT 238 X10^3/uL (150.0-450.0); RED CELL DISTRIBUTION WIDTH 13.9 % (11.6-16.5); WHITE BLOOD COUNT 7.3 X10^3/uL (3.6-10.0)
[2017-05-12] MEDS: MORPHINE SULFATE INJ 4 MG IVP PRN ×2 (07:11→14:33)
[2017-05-12] MEDS: PROTONIX INJ 40 MG VIAL IVP SCH (09:09)
[2017-05-12] MEDS: NS 1000 ML 1,000 ML IV SCH (14:50)
[2017-05-13] MEDS: MORPHINE SULFATE INJ 4 MG IVP PRN ×2 (00:08→07:48)
[2017-05-13] MEDS: NS 1000 ML 1,000 ML IV SCH ×2 (03:46→15:03)
[2017-05-13 06:07] LABS: BASOPHILS % (AUTO) 0.7 % (0.2-1.0); EOSINOPHILS # (AUTO) 0.1 x10^3/uL (0.0-0.2); EOSINOPHILS % (AUTO) 2.4 % (0.9-2.9); HEMATOCRIT 43.6 % (42.0-54.0); HEMOGLOBIN 15.2 g/dL (13.5-18.0); LYMPHOCYTES # (AUTO) 1.5 X10^3/uL (1.3-2.9); LYMPHOCYTES % (AUTO) 25.4 % (21.0-51.0); MEAN CORPUSCULAR HEMOGLOBIN 34.3 pg (27.0-34.0); MEAN CORPUSCULAR HGB CONC 34.8 g/dL (33.0-35.0); MEAN CORPUSCULAR VOLUME 98.6 fL (80.0-100.0); MEAN PLATELET VOLUME 8.2 fL (7.4-11.0); MONOCYTES % (AUTO) 16.2 % (0.0-13.0); NEUTROPHILS # (AUTO) 3.3 x10^3/uL (2.2-4.8); NEUTROPHILS % (AUTO) 55.3 % (42.0-75.0); PLATELET COUNT 228 X10^3/uL (150.0-450.0); RED BLOOD COUNT 4.43 X10^6/uL (4.7-6.0); RED CELL DISTRIBUTION WIDTH 13.7 % (11.6-16.5)
[2017-05-13 06:32] LABS: ALANINE AMINOTRANSFERASE 17 Units/L (12-78); ALBUMIN 2.8 g/dL (3.4-5.0); ALKALINE PHOSPHATASE 60 Units/L (46-116); AMYLASE 35 Units/L (25-115); ASPARTATE AMINO TRANSFERASE 16 Units/L (15-37); BLOOD UREA NITROGEN 10 mg/dL (7-18); CALCIUM 8.9 mg/dL (8.5-10.1); CARBON DIOXIDE 26.7 mmol/L (21-32); CHLORIDE 105 mmol/L (98-107); COR CA(FOR HYPOALB) 9.9 mg/dL (8.5-10.1); CREATININE 1.02 mg/dL (0.70-1.30); LIPASE 517 Units/L (73-393); SODIUM 141 mmol/L (136-145); TOTAL PROTEIN 6.6 g/dL (6.4-8.2); eGFR BLACK RACES > 60 (>60); eGFR NON BLACK RACES > 60 (>60)
[2017-05-13] MEDS ORDERED: LOTENSIN TAB 10 MG PO SCH (09:00)
[2017-05-13] MEDS ORDERED: NORVASC TAB 10 MG PO SCH (09:00)
[2017-05-13] MEDS ORDERED: BENAZEPRIL HCL PO SCH (09:00)
[2017-05-13] MEDS ORDERED: SYNTHROID 100 mcg TAB PO SCH (09:00)
[2017-05-13] MEDS: PROTONIX INJ 40 MG VIAL IVP SCH (09:11)
[2017-05-13 12:25] VITALS: BP 135/94
[2017-05-16 23:47] LABS: HEPATITIS A ANTIBODY IGM Negative (Negative)
[2017-05-17 13:46] LABS: HEPATITIS B SURFACE ANTIGEN Negative (Negative)
[2017-05-17 13:47] LABS: HEPATITIS B CORE IGM Negative (Negative)
== END 2017-05-13 15:30 | disposition home or self-care (01) ==
LOC: MED/SURG 15:14
PROVIDERS: ADMIT Internal Medicine; ATTEND Internal Medicine
DX: K85.90 Acute pancreatitis without necrosis or infection, unspecified (principal); R10.84 Generalized abdominal pain; R11.2 Nausea with vomiting, unspecified; I10 Essential (primary) hypertension; M19.90 Unspecified osteoarthritis, unspecified site; E03.8 Other specified hypothyroidism; K21.9 Gastro-esophageal reflux disease without esophagitis; R94.31 Abnormal electrocardiogram [ECG] [EKG]; Z66 Do not resuscitate
CPT/HCPCS: 36415; 74177; 80053; 80074; 81001; 82150; 83690; 85025; 87086; 93005; 93010; A4222; C9113; G0378; J2270; J2405

== ENCOUNTER 2018-05-12 21:06 | Observation (INO) ==
[2018-05-12 21:19] VITALS: BMI 31.2
[2018-05-12] MEDS ORDERED: NS 1/2 1000 ML IV 1,000 ML IV ONE ×2 (21:46→21:51)
[2018-05-12] MEDS ORDERED: NUBAIN INJ 10 IVP ONE (21:46)
[2018-05-12 22:10] LABS: BASOPHILS % (AUTO) 0 % (0.2-1.0); EOSINOPHILS # (AUTO) 0.1 x10^3/uL (0.0-0.2); EOSINOPHILS % (AUTO) 1.1 % (0.9-2.9); HEMATOCRIT 48.7 % (42.0-54.0); HEMOGLOBIN 17.1 g/dL (13.5-18.0); LYMPHOCYTES # (AUTO) 1.9 X10^3/uL (1.3-2.9); MEAN CORPUSCULAR HEMOGLOBIN 35.5 pg (27.0-34.0); MEAN CORPUSCULAR HGB CONC 35.2 g/dL (33.0-35.0); MEAN PLATELET VOLUME 7.8 fL (7.4-11.0); MONOCYTES # (AUTO) 1.9 x10^3/uL (0.3-0.8); MONOCYTES % (AUTO) 25.6 % (0.0-13.0); NEUTROPHILS # (AUTO) 3.6 x10^3/uL (2.2-4.8); NEUTROPHILS % (AUTO) 48.3 % (42.0-75.0); PLATELET COUNT 229 X10^3/uL (150.0-450.0); RED BLOOD COUNT 4.82 X10^6/uL (4.7-6.0); RED CELL DISTRIBUTION WIDTH 13.8 % (11.6-16.5); WHITE BLOOD COUNT 7.5 X10^3/uL (3.6-10.0)
--- NOTE | 2018-05-12 22:16 | DR.ABDMALE ---
HPI Time seen Time Seen by Provider: 05/12/18 21:11 PCP Primary Care Physician: OLIVA Complaint Chief Complaint Doctors Comments: He presents with generalized abdominal pain of 2-3 days duration. There is no nausea or vomiting. He can't characterize this "hurt" but he states that the intensity is a 10 on a scale of 0 to 10. He denies abdominal trauma but relates hx. of previous pancreatitis. Chief Complaint:: PT TO ER FOR COMPLAIN OF GENERALIZED ABDOMINAL PAIN. PT STATE THAT HE HAS HAD PANCREATITIS BEFORE AND THAT IS WHAT THIS FEELS LIKE. PT REPORTS LBM TODAY BUT STATES THAT HE FEELS BLOATED. Self Treatment fo Chief Complaint: NONE Reviewed Nurses Notes Review: Yes Mode of arrival Mode of Arrival: Ambulatory Timing Onset of Chief Complaint: 05/01/18 PMH PMH Past Medical History: Yes Past Medical History: Hypertension and Hypothyroidism Past Medical History Comment: PRIOR PANCREATITIS, HX OF HEAT STROKE Past Surgical History: Yes Surgical History: Cholecystectomy, Tonsillectomy and Other Family History History of Family Medical Conditions: Yes Family Medical History: Diabetes Mellitus and Hypertension Social History Does patient currently use any type of tobacco product: Yes Have you used tobacco products in the last 12 months: Yes Type of Tobacco Use: Cigarettes Does any household member use tobacco: No Do you use any recreational Drugs:: No infectious screening In the last 2 months have you had wt loss of >10#?: NO Have you had fever, night sweats or hemotysis?: No Have you traveled outside the country in the last 6 months?: No Isolation: Standard ROS Review of Systems Constitutional: No Symptoms Reported Eyes: No Symptoms Reported ENTM: No Symptoms Reported Respiratoy: No Symptoms Reported Cardiovascular: No Symptoms Reported Gastrointestinal/Abdominal: Abdominal Pain (diffuse) Genitourinary: No Symptoms Reported Neurological: No Symptoms Reported Musculoskeletal: No Symptoms Reported Integumentary: No Symptoms Reported Hematologic/Lymphatic: No Symptoms Reported Endocrine: No Symptoms Reported Psychiatric: No Symptoms Reported All Other Systems: Reviewed and Negative PE Vital Signs Vital Signs: Temp Pulse Resp BP BP BP Pulse Ox 05/12/18 21:12 98.0 F 108 H 20 139/81 97 05/13/17 12:00 135/94 135/94 05/13/17 00:00 159/84 General Limitations: No Limitations General Appearance: Alert and In No Apparent Distress Head Head Exam: Normal Inspection and Atraumatic Eyes Eye exam: Normal Appearance and EOMI ENT ENT Exam: Normal Exam, Normal Oropharynx and Mucous Membranes Moist Neck Neck Exam: Normal Inspection and Full ROM Chest Chest Inspection: Normal Inspection and Symmetric Chest Wall Rise Respiratory Respiratory Exam: Normal Lung Sounds Bilat Cardiovascular Cardiovascular Exam: Regular Rate, Normal Rhythm, Normal Heart Sounds, +S1 and +S2 Abdominal Exam Abdominal Exam: Normal Inspection, Normal Bowel Sounds, Soft, Tenderness and Other (obese); negative Distention, Guarding, Rebound, Rigidity, Dimnished Bowel Sounds, Hyperactive Bowel Sounds, Hypoactive Bowel Sounds, Organomegaly, Trauma, Incision, Ascites, Mass, Bruit, Pulsatile Mass and Hernia Abdominal Tenderness: Diffuse Rectal Rectal Exam: Deferred Back Back Exam: Normal Inspection Extremeties Extremities Exam: Normal Inspection and Full ROM Exam: Male: Deferred Neurologic Neurological Exam: Alert, Oriented X3 and Normal Gait Psychiatric Psychiatric Exam: Normal Affect and Normal Mood Skin Skin Exam: Warm and Normal Color ROR Labs Reviewed Laboratory Results Reviewed?: Yes Result Diagrams: 05/12/18 22:00 05/12/18 22:00 Laboratory: WBC 7.5 X10^3/uL (3.6-10.0) 05/12/18 22:00 RBC 4.82 X10^6/uL (4.7-6.0) 05/12/18 22:00 Hgb 17.1 g/dL (13.5-18.0) 05/12/18 22:00 Hct 48.7 % (42.0-54.0) 05/12/18 22:00 MCV 101.0 fL (80.0-100.0) H 05/12/18 22:00 MCH 35.5 pg (27.0-34.0) H 05/12/18 22:00 MCHC 35.2 g/dL (33.0-35.0) H 05/12/18 22:00 RDW 13.8 % (11.6-16.5) 05/12/18 22:00 Plt Count 229 X10^3/uL (150.0-450.0) 05/12/18 22:00 Plt Count Comment Adequate (ADEQUATE) 05/12/18 22:00 MPV 7.8 fL (7.4-11.0) 05/12/18 22:00 Neut % (Auto) 48.3 % (42.0-75.0) 05/12/18 22:00 Lymph % (Auto) 25.0 % (21.0-51.0) 05/12/18 22:00 [place] % (Auto) 25.6 % (0.0-13.0) H 05/12/18 22:00 Eos % (Auto) 1.1 % (0.9-2.9) 05/12/18 22:00 Baso % (Auto) 0 % (0.2-1.0) L 05/12/18 22:00 Neut # (Auto) 3.6 x10^3/uL (2.2-4.8) 05/12/18 22:00 Lymph # (Auto) 1.9 X10^3/uL (1.3-2.9) 05/12/18 22:00 [place] # (Auto) 1.9 x10^3/uL (0.3-0.8) H 05/12/18 22:00 Eos # (Auto) 0.1 x10^3/uL (0.0-0.2) 05/12/18 22:00 Baso # (Auto) 0.0 X10^3/uL (0.0-0.1) 05/12/18 22:00 Absolute Nucleated RBC 0.1 /100WBC 05/12/18 22:00 Total Counted 100 05/12/18 22:00 Neutrophils % (Manual) 50 % (39-76) 05/12/18 22:00 Lymphocytes % (Manual) 30 % (13-43) 05/12/18 22:00 Monocytes % (Manual) 20 % (4-9) H 05/12/18 22:00 Plt Morphology Comment Normal (NORMAL) 05/12/18 22:00 RBC Morphology Abnormal (NORMAL) 05/12/18 22:00 Anisocytosis Slight A 05/12/18 22:00 Macrocytosis Slight A 05/12/18 22:00 Sodium 142 mmol/L (136-145) 05/12/18 22:00 Corrected Sodium 142 mmol/L (136-145) 05/12/18 22:00 Potassium 3.6 mmol/L (3.5-5.1) 05/12/18 22:00 Chloride 105 mmol/L (98-107) 05/12/18 22:00 Carbon Dioxide 27.3 mmol/L (21-32) 05/12/18 22:00 BUN 6 mg/dL (7-18) L 05/12/18 22:00 Creatinine 0.94 mg/dL (0.70-1.30) 05/12/18 22:00 Est GFR (MDRD) Af Amer > 60 (>60) 05/12/18 22:00 Est GFR (MDRD) Non-Af > 60 (>60) 05/12/18 22:00 Glucose 112 mg/dL (65-99) H 05/12/18 22:00 Calcium 8.3 mg/dL (8.5-10.1) L 05/12/18 22:00 Corrected Calcium 8.9 mg/dL (8.5-10.1) 05/12/18 22:00 Total Bilirubin 0.40 mg/dL (0.2-1.0) 05/12/18 22:00 AST 13 Units/L (15-37) L 05/12/18 22:00 ALT 27 Units/L (12-78) 05/12/18 22:00 Alkaline Phosphatase 55 Units/L (46-116) 05/12/18 22:00 Total Protein 7.1 g/dL (6.4-8.2) 05/12/18 22:00 Albumin 3.2 g/dL (3.4-5.0) L 05/12/18 22:00 Globulin 3.9 g/dL (2.5-4.5) 05/12/18 22:00 Albumin/Globulin Ratio 0.8 Ratio (1.1-2.1) L 05/12/18 22:00 Amylase 41 Units/L (25-115) 05/12/18 22:00 Lipase 899 Units/L (73-393) H 05/12/18 22:00 Specimen Type Clean catch urine 05/12/18 22:31 Urine Color Yellow (YELLOW) 05/12/18 22:31 Urine Appearance Clear (CLEAR) 05/12/18 22:31 Urine pH 6.5 (5.0 - 8.0) 05/12/18 22:31 Ur Specific [place] 1.015 (1.000-1.030) 05/12/18 22:31 Urine Protein 2+ (NEGATIVE) 05/12/18 22:31 Urine Glucose (UA) Negative (NEGATIVE) 05/12/18 22:31 Urine Ketones Negative (NEGATIVE) 05/12/18 22:31 Urine Occult Blood 3+ (NEGATIVE) 05/12/18 22:31 Urine Nitrite Negative (NEGATIVE) 05/12/18 22:31 Urine Bilirubin Negative (NEGATIVE) 05/12/18 22:31 Urine Urobilinogen 1+ (NORMAL) 05/12/18 22:31 Ur Leukocyte Esterase Negative (NEGATIVE) 05/12/18 22:31 Urine RBC 0-2 /HPF (NONE SEEN) 05/12/18 22:31 Urine WBC 0-2 /HPF (NONE SEEN) 05/12/18 22:31 Ur Squamous Epith Cells Rare /HPF (NEGATIVE) 05/12/18 22:31 Urine Bacteria Negative /HPF (NEGATIVE) 05/12/18 22:31 Ur Culture Indicated? No/not indicated 05/12/18 22:31 Other Results Comments: Radiologist report on CT Abd./pelvis: No acute inflammatory process identified within the abdomen or pelvis. Progression in size and aneurysmal dilatation of ascending aorta. Diagnosis Discharge Problem: Acute pancreatitis Qualifiers: Pancreatitis type: idiopathic Acute pancreatitis complication: no infection or necrosis Qualified Code(s): K85.00 - Idiopathic acute pancreatitis without necrosis or infection
[2018-05-12 22:26] LABS: ANISOCYTOSIS SLIGHT
[2018-05-12 22:31] LABS: PLATELET MORPHOLOGY COMMENT NORMAL (NORMAL)
[2018-05-12 22:33] LABS: ALANINE AMINOTRANSFERASE 27 Units/L (12-78); ALBUMIN 3.2 g/dL (3.4-5.0); ALKALINE PHOSPHATASE 55 Units/L (46-116); AMYLASE 41 Units/L (25-115); ASPARTATE AMINO TRANSFERASE 13 Units/L (15-37); BLOOD UREA NITROGEN 6 mg/dL (7-18); CALCIUM 8.3 mg/dL (8.5-10.1); CARBON DIOXIDE 27.3 mmol/L (21-32); CHLORIDE 105 mmol/L (98-107); COR CA(FOR HYPOALB) 8.9 mg/dL (8.5-10.1); COR NA(FOR HYPERGLY) 142 mmol/L (136-145); CREATININE 0.94 mg/dL (0.70-1.30); LIPASE 899 Units/L (73-393); SODIUM 142 mmol/L (136-145); TOTAL PROTEIN 7.1 g/dL (6.4-8.2); eGFR NON BLACK RACES > 60 (>60)
[2018-05-12 22:36] LABS: BILIRUBIN,URINE NEGATIVE (NEGATIVE); BLOOD/HEMOGLOBIN,URINE 3+ (NEGATIVE); GLUCOSE, URINE NEGATIVE (NEGATIVE); KETONES,URINE NEGATIVE (NEGATIVE); LEUKOCYTE ESTERASE ,URINE NEGATIVE (NEGATIVE); NITRITES,URINE NEGATIVE (NEGATIVE); PH,URINE 6.5 (5.0 - 8.0); PROTEIN,URINE 2+ (NEGATIVE); UROBILINOGEN,URINE 1+ (NORMAL)
[2018-05-12 22:37] LABS: APPEARANCE,URINE CLEAR (CLEAR); COLOR,URINE YELLOW (YELLOW)
[2018-05-12 22:42] LABS: BACTERIA,URINE NEGATIVE /HPF (NEGATIVE); RBC,URINE 0-2 /HPF (NONE SEEN); SQUAMOUS EPITHELIAL CELL,UR RARE /HPF (NEGATIVE)
--- NOTE | 2018-05-12 23:05 | CT ---
CT abdomen and pelvis with contrast Indication: Abdominal pain Comparison: 05/11/2017 Technique: Multiple axial images of the abdomen and pelvis were obtained from the lung bases to the pubic symphysis after the administration of IV contrast. Coronal and sagittal reformatted images were also provided. Findings: The lung bases are clear. Partial visualization of the ascending aorta demonstrates suspected mild aneurysmal dilatation measuring approximately 4.5 cm in greatest caliber however motion artifact does slightly limit accurate measurement. Moderate coronary artery atherosclerotic disease. No focal hepatic lesion identified. The gallbladder is surgically absent. Bile ducts are normal in caliber. The spleen, pancreas and adrenal glands are normal. Neither kidney demonstrates evidence of nephrolithiasis, hydronephrosis or mass. Urinary bladder is normal. Prostate gland demonstrates central dystrophic calcification. Upper GI tract is without evidence of mass or obstruction. The rectum and colon are normal. The appendix is normal. Abdominal aorta is tortuous with moderate calcified atherosclerotic disease. No aneurysmal dilatation. Moderate calcified atheromatous disease is noted within bilateral iliac and femoral arteries. No pelvic free fluid. No adenopathy. Review of bone windows demonstrates no acute osseous abnormality; however, there is moderate multilevel spondylosis and facet arthropathy within the lower lumbar spine. Impression: 1. No acute inflammatory process identified within the abdomen or pelvis. 2. Progression in size and aneurysmal dilatation of the visualized ascending aorta measuring approximately 4.5 cm in diameter given limitations of motion. Dedicated follow-up nonemergent chest CTA is recommended for further evaluation of thoracic aortic aneurysm. 3. Chronic, incidental findings as described above. Reported By:
--- NOTE | 2018-05-12 23:52 | DR.ABDMALE ---
HPI Time seen Time Seen by Provider: 05/12/18 21:11 PCP Primary Care Physician: OLIVA Complaint Chief Complaint:: PT TO ER FOR COMPLAIN OF GENERALIZED ABDOMINAL PAIN. PT STATE THAT HE HAS HAD PANCREATITIS BEFORE AND THAT IS WHAT THIS FEELS LIKE. PT REPORTS LBM TODAY BUT STATES THAT HE FEELS BLOATED. Self Treatment fo Chief Complaint: NONE Mode of arrival Mode of Arrival: Ambulatory Timing Onset of Chief Complaint: 05/01/18 PMH PMH Past Medical History: Yes Past Medical History: Hypertension and Hypothyroidism Past Medical History Comment: PRIOR PANCREATITIS, HX OF HEAT STROKE Past Surgical History: Yes Surgical History: Cholecystectomy, Tonsillectomy and Other Family History History of Family Medical Conditions: Yes Family Medical History: Diabetes Mellitus and Hypertension Social History Does patient currently use any type of tobacco product: Yes Have you used tobacco products in the last 12 months: Yes Type of Tobacco Use: Cigarettes Does any household member use tobacco: No Do you use any recreational Drugs:: No infectious screening In the last 2 months have you had wt loss of >10#?: NO Have you had fever, night sweats or hemotysis?: No Have you traveled outside the country in the last 6 months?: No Isolation: Standard PE Vital Signs Vital Signs: Temp Pulse Resp BP BP BP Pulse Ox 05/12/18 21:12 98.0 F 108 H 20 139/81 97 05/13/17 12:00 135/94 135/94 05/13/17 00:00 159/84 ROR Labs Reviewed Result Diagrams: 05/12/18 22:00 05/12/18 22:00 Laboratory: WBC 7.5 X10^3/uL (3.6-10.0) 05/12/18 22:00 RBC 4.82 X10^6/uL (4.7-6.0) 05/12/18 22:00 Hgb 17.1 g/dL (13.5-18.0) 05/12/18 22:00 Hct 48.7 % (42.0-54.0) 05/12/18 22:00 MCV 101.0 fL (80.0-100.0) H 05/12/18 22:00 MCH 35.5 pg (27.0-34.0) H 05/12/18 22:00 MCHC 35.2 g/dL (33.0-35.0) H 05/12/18 22:00 RDW 13.8 % (11.6-16.5) 05/12/18 22:00 Plt Count 229 X10^3/uL (150.0-450.0) 05/12/18 22:00 Plt Count Comment Adequate (ADEQUATE) 05/12/18 22:00 MPV 7.8 fL (7.4-11.0) 05/12/18 22:00 Neut % (Auto) 48.3 % (42.0-75.0) 05/12/18 22:00 Lymph % (Auto) 25.0 % (21.0-51.0) 05/12/18 22:00 [place] % (Auto) 25.6 % (0.0-13.0) H 05/12/18 22:00 Eos % (Auto) 1.1 % (0.9-2.9) 05/12/18 22:00 Baso % (Auto) 0 % (0.2-1.0) L 05/12/18 22:00 Neut # (Auto) 3.6 x10^3/uL (2.2-4.8) 05/12/18 22:00 Lymph # (Auto) 1.9 X10^3/uL (1.3-2.9) 05/12/18 22:00 [place] # (Auto) 1.9 x10^3/uL (0.3-0.8) H 05/12/18 22:00 Eos # (Auto) 0.1 x10^3/uL (0.0-0.2) 05/12/18 22:00 Baso # (Auto) 0.0 X10^3/uL (0.0-0.1) 05/12/18 22:00 Absolute Nucleated RBC 0.1 /100WBC 05/12/18 22:00 Total Counted 100 05/12/18 22:00 Neutrophils % (Manual) 50 % (39-76) 05/12/18 22:00 Lymphocytes % (Manual) 30 % (13-43) 05/12/18 22:00 Monocytes % (Manual) 20 % (4-9) H 05/12/18 22:00 Plt Morphology Comment Normal (NORMAL) 05/12/18 22:00 RBC Morphology Abnormal (NORMAL) 05/12/18 22:00 Anisocytosis Slight A 05/12/18 22:00 Macrocytosis Slight A 05/12/18 22:00 Sodium 142 mmol/L (136-145) 05/12/18 22:00 Corrected Sodium 142 mmol/L (136-145) 05/12/18 22:00 Potassium 3.6 mmol/L (3.5-5.1) 05/12/18 22:00 Chloride 105 mmol/L (98-107) 05/12/18 22:00 Carbon Dioxide 27.3 mmol/L (21-32) 05/12/18 22:00 BUN 6 mg/dL (7-18) L 05/12/18 22:00 Creatinine 0.94 mg/dL (0.70-1.30) 05/12/18 22:00 Est GFR (MDRD) Af Amer > 60 (>60) 05/12/18 22:00 Est GFR (MDRD) Non-Af > 60 (>60) 05/12/18 22:00 Glucose 112 mg/dL (65-99) H 05/12/18 22:00 Calcium 8.3 mg/dL (8.5-10.1) L 05/12/18 22:00 Corrected Calcium 8.9 mg/dL (8.5-10.1) 05/12/18 22:00 Total Bilirubin 0.40 mg/dL (0.2-1.0) 05/12/18 22:00 AST 13 Units/L (15-37) L 05/12/18 22:00 ALT 27 Units/L (12-78) 05/12/18 22:00 Alkaline Phosphatase 55 Units/L (46-116) 05/12/18 22:00 Total Protein 7.1 g/dL (6.4-8.2) 05/12/18 22:00 Albumin 3.2 g/dL (3.4-5.0) L 05/12/18 22:00 Globulin 3.9 g/dL (2.5-4.5) 05/12/18 22:00 Albumin/Globulin Ratio 0.8 Ratio (1.1-2.1) L 05/12/18 22:00 Amylase 41 Units/L (25-115) 05/12/18 22:00 Lipase 899 Units/L (73-393) H 05/12/18 22:00 Specimen Type Clean catch urine 05/12/18 22:31 Urine Color Yellow (YELLOW) 05/12/18 22: Urine Appearance Clear (CLEAR) 05/12/18 22: Urine pH 6.5 (5.0 - 8.0) 05/12/18 22:31 Ur Specific [place] 1.015 (1.000-1.030) 05/12/18 22:31 Urine Protein 2+ (NEGATIVE) 05/12/18 22: Urine Glucose (UA) Negative (NEGATIVE) 05/12/18 22: Urine Ketones Negative (NEGATIVE) 05/12/18 22: Urine Occult Blood 3+ (NEGATIVE) 05/12/18 22: Urine Nitrite Negative (NEGATIVE) 05/12/18 22: Urine Bilirubin Negative (NEGATIVE) 05/12/18 22: Urine Urobilinogen 1+ (NORMAL) 05/12/18 22:31 Ur Leukocyte Esterase Negative (NEGATIVE) 05/12/18 22:31 Urine RBC 0-2 /HPF (NONE SEEN) 05/12/18 22:31 Urine WBC 0-2 /HPF (NONE SEEN) 05/12/18 22:31 Ur Squamous Epith Cells Rare /HPF (NEGATIVE) 05/12/18 22:31 Urine Bacteria Negative /HPF (NEGATIVE) 05/12/18 22:31 Ur Culture Indicated? No/not indicated 05/12/18 22:31 Diagnosis Discharge Problem: Acute pancreatitis Qualifiers: Pancreatitis type: idiopathic Acute pancreatitis complication: no infection or necrosis Qualified Code(s): K85.00 - Idiopathic acute pancreatitis without necrosis or infection
[2018-05-13] MEDS ORDERED: NS 1/2 1000 ML IV 1,000 ML IV ONE ×2 (00:30→05:52)
[2018-05-13] MEDS ORDERED: DILAUDID INJ ONE (00:35)
[2018-05-13] MEDS: NS 1/2 1000 ML IV 1,000 ML IV SCH ×2 (00:40→08:45)
[2018-05-13] MEDS: DILAUDID INJ IVP PRN ×4 (00:42→13:55)
[2018-05-13 05:46] LABS: ALANINE AMINOTRANSFERASE 26 Units/L (12-78); ALBUMIN 3.1 g/dL (3.4-5.0); ALKALINE PHOSPHATASE 50 Units/L (46-116); ASPARTATE AMINO TRANSFERASE 15 Units/L (15-37); BLOOD UREA NITROGEN 6 mg/dL (7-18); CARBON DIOXIDE 27.7 mmol/L (21-32); CHLORIDE 104 mmol/L (98-107); CHOL/HDL RATIO 5.7 (0.0-5.0); CHOLESTEROL 147 mg/dL (0-200); COR CA(FOR HYPOALB) 8.7 mg/dL (8.5-10.1); COR NA(FOR HYPERGLY) 141 mmol/L (136-145); CREATININE 0.79 mg/dL (0.70-1.30); HDL CHOLESTEROL 26 mg/dL (40-60); LIPASE 1007 Units/L (73-393); SODIUM 141 mmol/L (136-145); TOTAL PROTEIN 6.8 g/dL (6.4-8.2); TRIGLYCERIDES 72 mg/dL (0-150); eGFR NON BLACK RACES > 60 (>60)
[2018-05-13] MEDS ORDERED: MICRO K EXTEN CAP 10 MEQ PO PRN (07:26)
[2018-05-13] MEDS ORDERED: K-DUR TAB 20 MEQ PO PRN (07:26)
[2018-05-13] MEDS ORDERED: POTASSIUM CHLORIDE LIQ 20 MEQ UDC PO PRN (07:26)
[2018-05-13] MEDS ORDERED: POTASSIUM CHL 60 MEQ/NS 0.45% 500 ML IV PRN (07:26)
[2018-05-13] MEDS ORDERED: KLOR-CON PO PRN (07:26)
[2018-05-13] MEDS ORDERED: POTASSIUM CHL 40 MEQ/NS 0.45% 500 ML IV PRN (07:26)
[2018-05-13] MEDS: K-RIDER 10 MEQ/NS 100 ML 10 MEQ/100 ML BAG IV PRN ×2 (08:44→09:57)
[2018-05-13] MEDS: NS 1/2 + KCL 20 MEQ/L 1,000 ML IV SCH ×2 (11:55→21:26)
[2018-05-13] MEDS: MAGNESIUM SULFATE 1 GRAM/100 mL PREMIX 1 GM/100 ML BAG IV PRN ×2 (11:55→14:03)
[2018-05-13 12:13] LABS: IRON 87 ug/dL (50-175)
[2018-05-13] MEDS ORDERED: BENADRYL INJ 50 MG VIAL IVP ONE (14:42)
[2018-05-13] MEDS ORDERED: BENADRYL INJ 50 MG VIAL ONE (14:45)
[2018-05-13] MEDS: MORPHINE SULFATE INJ 10 MG IVP PRN (19:15)
[2018-05-13] MEDS ORDERED: BENADRYL INJ 50 MG VIAL IM PRN (19:56)
[2018-05-13] MEDS: BENADRYL INJ 50 MG VIAL ONE ×2 (20:13→20:14)
[2018-05-13] MEDS: BENADRYL INJ 50 MG VIAL IVP PRN (20:14)
[2018-05-14] MEDS: MORPHINE SULFATE INJ 10 MG IVP PRN ×4 (01:55→21:43)
[2018-05-14 05:36] LABS: BASOPHILS % (AUTO) 0.6 % (0.2-1.0); EOSINOPHILS # (AUTO) 0.7 x10^3/uL (0.0-0.2); EOSINOPHILS % (AUTO) 11.7 % (0.9-2.9); HEMATOCRIT 43.6 % (42.0-54.0); LYMPHOCYTES # (AUTO) 1.7 X10^3/uL (1.3-2.9); LYMPHOCYTES % (AUTO) 29.3 % (21.0-51.0); MEAN CORPUSCULAR HEMOGLOBIN 35.4 pg (27.0-34.0); MEAN CORPUSCULAR HGB CONC 34.4 g/dL (33.0-35.0); MEAN CORPUSCULAR VOLUME 102.8 fL (80.0-100.0); MEAN PLATELET VOLUME 7.8 fL (7.4-11.0); MONOCYTES # (AUTO) 1.5 x10^3/uL (0.3-0.8); MONOCYTES % (AUTO) 25.3 % (0.0-13.0); NEUTROPHILS % (AUTO) 33.1 % (42.0-75.0); PLATELET COUNT 219 X10^3/uL (150.0-450.0); RED BLOOD COUNT 4.24 X10^6/uL (4.7-6.0); WHITE BLOOD COUNT 5.9 X10^3/uL (3.6-10.0)
[2018-05-14] MEDS: NS 1/2 + KCL 20 MEQ/L 1,000 ML IV SCH ×4 (05:45→20:32)
[2018-05-14 05:51] LABS: ALANINE AMINOTRANSFERASE 25 Units/L (12-78); ALBUMIN 2.9 g/dL (3.4-5.0); ALKALINE PHOSPHATASE 50 Units/L (46-116); AMYLASE 37 Units/L (25-115); ASPARTATE AMINO TRANSFERASE 18 Units/L (15-37); BLOOD UREA NITROGEN 6 mg/dL (7-18); CALCIUM 7.8 mg/dL (8.5-10.1); CARBON DIOXIDE 28.6 mmol/L (21-32); CHLORIDE 104 mmol/L (98-107); COR CA(FOR HYPOALB) 8.7 mg/dL (8.5-10.1); CREATININE 0.79 mg/dL (0.70-1.30); LIPASE 613 Units/L (73-393); MAGNESIUM 1.8 mg/dL (1.7-2.9); SODIUM 139 mmol/L (136-145); TOTAL PROTEIN 6.5 g/dL (6.4-8.2); eGFR NON BLACK RACES > 60 (>60)
[2018-05-14 06:09] LABS: PLATELET MORPHOLOGY COMMENT NORMAL (NORMAL)
[2018-05-14] MEDS ORDERED: DEPO-TESTOSTERONE IM NR (10:00)
[2018-05-14] MEDS ORDERED: LEXAPRO ONE (10:31)
[2018-05-14] MEDS: LEXAPRO PO SCH (10:33)
[2018-05-14] MEDS: NORVASC TAB 10 MG PO SCH (10:34)
[2018-05-14] MEDS: LOTENSIN TAB 10 MG PO SCH (10:34)
[2018-05-14] MEDS: PriLOSEC PO SCH (10:34)
[2018-05-14] MEDS: PLAVIX PO SCH (10:34)
[2018-05-14] MEDS: FLOMAX PO SCH (10:34)
[2018-05-14] MEDS: SYNTHROID 100 mcg TAB PO SCH (10:34)
[2018-05-14] MEDS: BENADRYL INJ 50 MG VIAL IVP PRN (21:42)
[2018-05-15] MEDS: MORPHINE SULFATE INJ 10 MG IVP PRN ×2 (03:27→08:23)
[2018-05-15] MEDS: NS 1/2 + KCL 20 MEQ/L 1,000 ML IV SCH (03:27)
[2018-05-15 05:16] LABS: BASOPHILS % (AUTO) 0.8 % (0.2-1.0); EOSINOPHILS # (AUTO) 0.7 x10^3/uL (0.0-0.2); EOSINOPHILS % (AUTO) 10.9 % (0.9-2.9); HEMATOCRIT 42.8 % (42.0-54.0); HEMOGLOBIN 14.8 g/dL (13.5-18.0); LYMPHOCYTES # (AUTO) 1.5 X10^3/uL (1.3-2.9); LYMPHOCYTES % (AUTO) 23.2 % (21.0-51.0); MEAN CORPUSCULAR HEMOGLOBIN 35.3 pg (27.0-34.0); MEAN CORPUSCULAR HGB CONC 34.7 g/dL (33.0-35.0); MEAN CORPUSCULAR VOLUME 101.9 fL (80.0-100.0); MEAN PLATELET VOLUME 7.6 fL (7.4-11.0); MONOCYTES # (AUTO) 1.7 x10^3/uL (0.3-0.8); MONOCYTES % (AUTO) 26.2 % (0.0-13.0); NEUTROPHILS # (AUTO) 2.5 x10^3/uL (2.2-4.8); NEUTROPHILS % (AUTO) 38.9 % (42.0-75.0); PLATELET COUNT 211 X10^3/uL (150.0-450.0); WHITE BLOOD COUNT 6.3 X10^3/uL (3.6-10.0)
[2018-05-15 05:23] LABS: ALANINE AMINOTRANSFERASE 24 Units/L (12-78); ALBUMIN 2.7 g/dL (3.4-5.0); ALKALINE PHOSPHATASE 50 Units/L (46-116); AMYLASE 26 Units/L (25-115); ASPARTATE AMINO TRANSFERASE 17 Units/L (15-37); BLOOD UREA NITROGEN 5 mg/dL (7-18); CALCIUM 7.8 mg/dL (8.5-10.1); CARBON DIOXIDE 26.7 mmol/L (21-32); CHLORIDE 105 mmol/L (98-107); COR CA(FOR HYPOALB) 8.8 mg/dL (8.5-10.1); CREATININE 0.78 mg/dL (0.70-1.30); LIPASE 320 Units/L (73-393); SODIUM 139 mmol/L (136-145); TOTAL PROTEIN 6.3 g/dL (6.4-8.2); eGFR NON BLACK RACES > 60 (>60)
[2018-05-15 06:17] LABS: BAND NEUTROPHILS % 4 % (0-10); PLATELET MORPHOLOGY COMMENT NORMAL (NORMAL)
[2018-05-15] MEDS ORDERED: LEXAPRO ONE (08:05)
[2018-05-15 08:20] VITALS: BP 139/78
[2018-05-15] MEDS: NORVASC TAB 10 MG PO SCH (08:21)
[2018-05-15] MEDS: LOTENSIN TAB 10 MG PO SCH (08:22)
[2018-05-15] MEDS: FLOMAX PO SCH (08:22)
[2018-05-15] MEDS: PriLOSEC PO SCH (08:22)
[2018-05-15] MEDS: SYNTHROID 100 mcg TAB PO SCH (08:22)
[2018-05-15] MEDS: PLAVIX PO SCH (08:22)
[2018-05-15] MEDS: LEXAPRO PO SCH (08:23)
== END 2018-05-15 11:50 | disposition home or self-care (01) ==
LOC: MED/SURG 21:11 → ER 21:11 → MED/SURG 05-13 00:25
PROVIDERS: ADMIT Obstetrics & Gynecology Obstetrics; ATTEND Obstetrics & Gynecology Obstetrics
CPT/HCPCS: 36415; 74177; 80053; 80061; 81001; 82150; 82607; 82728; 82746; 83540; 83690; 83735; 84425; 84466; 85025; 96365; 96374; 99283; 99284; A4222; J7030; G0378; J1170; J1200; J2270; J2300; J3475; J3480